=== PATIENT | female | born 1985 | race Caucasian/White ===

== ENCOUNTER 2018-12-13 16:57 | Outpatient (CLI) | payer MEDICAID ==
--- NOTE | 2018-12-14 08:30 | XRAY Report ---
Reason: LOW BACK PAIN Procedure Date: 12/13/2018 Accession Number: [id number] / [id number] Procedure: XR - Lumbar Spine 2 View CPT Code: FULL RESULT: EXAM: LUMBOSACRAL SPINE RADIOGRAPHY EXAM DATE: 12/13/2018 05:12 PM. CLINICAL HISTORY: Low back pain. COMPARISONS: None. TECHNIQUE: 3 views. FINDINGS: Alignment: Normal. No spondylolisthesis or scoliosis. Bones: Five [id number]-[id number] lumbar vertebral bodies are present. Mildly displaced triangular shaped bone density off the anterior superior aspect of the L5 vertebral body, with well-corticated margins suggesting a nonacute process. This could be related to unfused apophysis versus old chip fracture. Vertebral body heights elsewhere are unremarkable. Disks: Mild disk space narrowing L4-L5 and L5-S1. Small Schmorl's nodes at the superior endplates of L1, L2, and L3.. Facets: Mild hypertrophic changes bilaterally L5-S1, and on the left L4-L5. Sacroiliac Joints: Within normal limits. Soft Tissues: Surgical clips consistent with previous cholecystectomy. IMPRESSION: Mild degenerative changes lower lumbar spine RADIA
== END 2018-12-13 16:58 | disposition home or self-care (01) ==
LOC: DI 16:57
PROVIDERS: ATTEND Physician Assistant Medical
DX: M47.816 Spondylosis without myelopathy or radiculopathy, lumbar region (principal); M47.817 Spondylosis without myelopathy or radiculopathy, lumbosacral region; M51.36 Other intervertebral disc degeneration, lumbar region; M51.37 Other intervertebral disc degeneration, lumbosacral region; M51.46 Schmorl's nodes, lumbar region
CPT/HCPCS: 72100

== ENCOUNTER 2018-12-16 08:14 | Emergency (ER) | payer MEDICAID ==
[2018-12-16] MEDS ORDERED: ALBUTEROL NEB 2.5 MG/3 ML INH STA (09:01)
--- NOTE | 2018-12-16 09:05 | ED Physician Documentation ---
History of Present Illness - Stated complaint Stated Complaint: TIGHTNESS IN THROAT - Chief complaint Chief Complaint: Heent - History obtained from History obtained from: Patient - History of Present Illness Timing: Yesterday Pain level max: 5 Pain level now: 4 Improved by: nothing Worsened by: swallowing - Additonal information Additional information: states throat feels swollen and sore. worse today. Review of Systems Constitutional: denies: Fever, Chills Nose: reports: Rhinorrhea / runny nose, Congestion Throat: reports: Sore throat Respiratory: reports: Cough (dry), Wheezing (using albuterol) GI: denies: Nausea, Vomiting, Diarrhea : denies: Dysuria Skin: denies: Rash Musculoskeletal: denies: Neck pain, Back pain Neurologic: denies: Focal weakness, Numbness, Headache PD PAST MEDICAL HISTORY - Past Medical History Past Medical History: Yes Respiratory: Asthma - Present Medications Home Medications: Ambulatory Orders Medication Instructions Recorded Confirmed predniSONE [Deltasone] 10 mg PO [id number] #[id number] tab 12/16/18 - Allergies Allergies/Adverse Reactions: Allergies Allergy/AdvReac Type Severity Reaction Status Date / Time codeine Allergy Unknown Verified 12/16/18 08:23 erythromycin base Allergy Unknown Verified 12/16/18 08:23 hydrocodone Allergy Unknown Verified 12/16/18 08:23 - Living Situation Living Arrangement: reports: At home - Social History Does the pt smoke?: No Does the pt have substance abuse?: No - Family History Family history: reports: Non contributory PD ED PE NORMAL - Vitals Vital signs reviewed: Yes - General General: Alert and oriented X 3, No acute distress, Well developed/nourished - HEENT HEENT: PERRL, Moist mucous membranes, Other (posterior oropharyngeal erythema with tonsillar exudeates. Uvula midline. No trismus.) - Neck Neck: Supple, no meningeal sign, Other (shotty anterior LAD) - Cardiac Cardiac: RRR, No murmur - Respiratory Respiratory: Other (mild wheeze B) - Abdomen Abdomen: Normal bowel sounds, Soft, Non tender, Non distended - Derm Derm: Warm and dry, No rash - Neuro Neuro: Alert and oriented X 3 - Psych Psych: Normal mood, Normal affect Results - Vitals Vitals: Vital Signs - 24 hr 12/16/18 12/16/18 12/16/18 08:19 09:15 09:48 Temperature 36.4 C L 36.8 C Heart Rate 76 98 86 Respiratory 16 12 18 Rate Blood Pressure 131/84 H 143/88 H O2 Saturation 98 98 Oxygen O2 Source Room air - Labs Labs: Laboratory Tests 12/16/18 12/16/18 09:08 09:08 Ur Specific [place] 1.020 Urine HCG, Qual NEGATIVE Group A Strep Rapid Negative PD MEDICAL DECISION MAKING - ED course Complexity details: re-evaluated patient, considered differential, d/w patient ED course: 33-year-old female, well-appearing, nontoxic. Afebrile. Feels better after albuterol treatment here. Will place on steroids for home. Has albuterol at home. Strep test is negative. Patient and family counseled regarding signs and symptoms for which I believe and urgent re-evaluation would be necessary. Patient with good understanding of and agreement to plan and is comfortable going home at this time This document was made in part using voice recognition software. While efforts are made to proofread this document, sound alike and grammatical errors may occur. Departure - Departure Disposition: 01 Home, Self Care Clinical Impression: Viral URI Condition: Good Instructions: ED URI Viral Follow-Up: Ramón Chowdary PA-C [Primary Care Provider] - Within 1 week Prescriptions: predniSONE [Deltasone] 10 mg PO [id number] #[id number] tab Comments: The steroids will help with the swelling. Return if you worsen. Continue to use your inhaler at home. Please use it with a spacer. Your strep test is negative. Discharge Date/Time: 12/16/18 09:50
[2018-12-16 09:18] LABS: HCG UR QUAL NEGATIVE
[2018-12-16 09:50] VITALS: BP 143/88
== END 2018-12-16 09:50 | disposition home or self-care (01) ==
LOC: ED 08:14
DX: J06.9 Acute upper respiratory infection, unspecified (principal)
CPT/HCPCS: 81025; 87070; 87430; 94640; 99283

== ENCOUNTER 2019-04-11 08:00 | Outpatient (CLI) | payer MEDICAID ==
[2019-04-11 19:34] LABS: THYROID STIMULATING HORMONE 0.43 uIU/mL (0.34-5.60)
[2019-04-11 19:36] LABS: FREE T4 (FREE THYROXINE) 0.65 ng/dL (0.58-1.64)
== END 2019-04-11 23:59 | disposition home or self-care (01) ==
LOC: LAB.N 08:00
PROVIDERS: ATTEND Physician Assistant Medical
DX: E04.9 Nontoxic goiter, unspecified (principal)
CPT/HCPCS: 36415; 84439; 84443

== ENCOUNTER 2020-09-02 17:42 | Emergency (ER) | payer MEDICAID ==
[2020-09-02 18:02] VITALS: BP 139/86
[2020-09-02] MEDS ORDERED: BACITRACIN ZINC OINT 1 PACKET TOP STA (18:55)
--- NOTE | 2020-09-02 19:02 | ED Physician Documentation ---
History of Present Illness - Stated complaint Stated Complaint: RT LEG PX - Chief complaint Chief Complaint: Laceration - History obtained from History obtained from: Patient - History of Present Illness Timing: Yesterday Pain level max: 3 Pain level now: 3 - Additonal information Additional information: 35-year-old female states that she injured her right lower extremity on a tile yesterday. She states that she is concerned that there could be thin set in her wound. Td UTD. Nothing makes it better or worse. Review of Systems Constitutional: denies: Fever : denies: Now EGA PD PAST MEDICAL HISTORY - Past Medical History Past Medical History: Yes Respiratory: Asthma Psych: Depression, Anxiety, Post traumatic stress disorder - Past Surgical History Past Surgical History: Yes General: Cholecystectomy Ortho: Knee replacement /FISHING GUIDE: section, Tubal ligation - Present Medications Home Medications: Ambulatory Orders Medication Instructions Recorded Confirmed Bacitracin Zinc Oint 1 applic TOP BID #1 gm 09/02/20 Metformin HCl [Glucophage] 1,000 mg PO BID 09/02/20 09/02/20 Sertraline [Zoloft] 50 mg PO DAILY 09/02/20 09/02/20 - Allergies Allergies/Adverse Reactions: Allergies Allergy/AdvReac Type Severity Reaction Status Date / Time codeine Allergy Unknown Verified 09/02/20 17:58 erythromycin base Allergy Unknown Verified 09/02/20 17:58 hydrocodone Allergy Unknown Verified 09/02/20 17:58 - Social History Does the pt smoke?: No Smoking Status: Never smoker Does the pt drink ETOH?: No Does the pt have substance abuse?: No - Immunizations Immunizations are current?: Yes PD ED PE NORMAL - Vitals Vital signs reviewed: Yes - General General: Alert and oriented X 3, No acute distress - Derm Derm: Warm and dry - Extremities Extremities: Other (small abrasion/avulsion to the R lateral leg, near the proximal fibula. no active bleeding. ) - Neuro Neuro: Alert and oriented X 3 Results - Vitals Vitals: Vital Signs - 24 hr 09/02/20 17:58 Temperature 36.5 C Heart Rate 85 Respiratory 16 Rate Blood Pressure 139/86 H O2 Saturation 99 Oxygen O2 Source Room air PD MEDICAL DECISION MAKING - ED course Complexity details: considered differential, d/w patient ED course: Bacitracin applied. wound cleansed. no indication for delayed closure. Warnings of infection and instructions on wound care given at bedside. Also counseled on how to minimize scarring. Patient counseled regarding signs and symptoms for which I believe and urgent re-evaluation would be necessary. Patient with good understanding of and agreement to plan and is comfortable going home at this time This document was made in part using voice recognition software. While efforts are made to proofread this document, sound alike and grammatical errors may occur. Departure - Departure Disposition: 01 Home, Self Care Clinical Impression: Skin laceration Condition: Good Instructions: ED Laceration All Follow-Up: Lamont Lindo ARNP [Primary Care Provider] - As Needed Prescriptions: Bacitracin Zinc Oint 1 applic TOP BID #1 gm Comments: You can use the bacitracin to place over the wound. Return if you notice redness, swelling or drainage from the wound. Follow-up with your doctor as needed for further care. Keep the wound clean. Discharge Date/Time: 09/02/20 19:10
== END 2020-09-02 19:10 | disposition home or self-care (01) ==
LOC: ED 17:42
DX: S81.811A Laceration without foreign body, right lower leg, initial encounter (principal); W26.8XXA Contact with other sharp object(s), not elsewhere classified, initial encounter
CPT/HCPCS: 99282; 99283; A9270